=== PATIENT | male | born 1960 | race Caucasian/White ===

== ENCOUNTER 2021-03-07 16:57 | Emergency (ER) | payer OTHER ==
[~2021-03-07] VITALS: Ht 172.7 cm; Wt 86.2 kg
[2021-03-07 19:12] LABS: BASOPHILS ABSOLUTE AUTO 0.04 K/mm3 (0.00-0.23); BASOPHILS PERCENT AUTO 0 % (0-2); EOSINOPHILS ABSOLUTE AUTO 0.04 K/mm3 (0.00-0.68); EOSINOPHILS PERCENT AUTO 0 % (0-6); Hematocrit 44.6 % (37.0-53.0); Hemoglobin 14.7 g/dL (13.5-17.5); IMMATURE GRAN ABSOLUTE AUTO 0.05 K/mm3 (0.00-0.10); IMMATURE GRAN PERCENT AUTO 1 % (0-1); LYMPHOCYTES ABSOLUTE AUTO 1.32 K/mm3 (0.84-5.20); LYMPHOCYTES PERCENT AUTO 12 % (21-46); MONOCYTES ABSOLUTE AUTO 0.93 K/mm3 (0.16-1.47); MONOCYTES PERCENT AUTO 9 % (4-13); Mean Corpuscular HGB 29.3 pg (26.0-34.0); Mean Corpuscular Volume 89 fL (80-100); Mean Platelet Volume 9.8 fL (9.1-12.4); NEUTROPHILS PERCENT AUTO 78 % (41-73); Platelet Count 288 K/mm3 (150-400); RDW Coefficient Variation 13.5 % (11.7-14.2); Red Blood Cell Count 5.01 M/mm3 (4.30-5.90); White Blood Cell Count 10.98 K/mm3 (4.00-11.30)
[2021-03-07 19:29] LABS: Alanine Aminotransfer (ALT/SGP 28 U/L (12-78); Albumin, Blood 3.7 g/dL (3.4-5.0); Albumin/Globulin Ratio 0.9 (0.8-1.8); Alk Phos 118 U/L (50-136); Anion Gap 10 mmol/L (6-16); Aspartate Aminotrans (AST/SGOT 24 U/L (12-37); Bilirubin, Total 0.3 mg/dL (0.1-1.0); Blood Urea Nitrogen 18 mg/dL (8-24); Bun/Creatinine Ratio 15.8 (12.0-20.0); CO2, Blood 20 mmol/L (21-32); Calcium, Blood 8.8 mg/dL (8.5-10.1); Chloride, Blood 109 mmol/L (98-108); Creatinine, Blood 1.14 mg/dL (0.60-1.20); Ethanol (Alcohol), Blood, Med 84 mg/dL; Globulin, Blood 4.2 g/dL (2.2-4.0); Glomerular Filtration Rate >60 (60-); Glucose, Blood 106 mg/dL (70-99); Potassium, Blood 3.9 mmol/L (3.5-5.5); Sodium, Blood 139 mmol/L (136-145); Total Protein, Blood 7.9 g/dL (6.4-8.2)
== END 2021-03-07 21:05 | disposition home or self-care (01) ==
LOC: ER 16:57
PROVIDERS: Student in an Organized Health Care Education/Training Program
DX: S39.011A Strain of muscle, fascia and tendon of abdomen, initial encounter (principal); S20.212A Contusion of left front wall of thorax, initial encounter; W17.81XA Fall down embankment (hill), initial encounter
CPT/HCPCS: 71101; 74177; 80053; 85025; 96374; 99284-25; G0480; J1170; Q9967

== ENCOUNTER 2021-09-18 18:12 | Inpatient (IN) | payer OTHER ==
[~2021-09-18] VITALS: Ht 172.7 cm; Wt 94.9 kg
[2021-09-18 19:23] LABS: BASOPHILS ABSOLUTE AUTO 0.03 K/mm3 (0.00-0.23); BASOPHILS PERCENT AUTO 0 % (0-2); EOSINOPHILS ABSOLUTE AUTO 0.04 K/mm3 (0.00-0.68); EOSINOPHILS PERCENT AUTO 0 % (0-6); Hematocrit 46.6 % (37.0-53.0); Hemoglobin 15.8 g/dL (13.5-17.5); IMMATURE GRAN ABSOLUTE AUTO 0.05 K/mm3 (0.00-0.10); IMMATURE GRAN PERCENT AUTO 0 % (0-1); LYMPHOCYTES ABSOLUTE AUTO 1.85 K/mm3 (0.84-5.20); LYMPHOCYTES PERCENT AUTO 12 % (21-46); MONOCYTES ABSOLUTE AUTO 1.17 K/mm3 (0.16-1.47); MONOCYTES PERCENT AUTO 8 % (4-13); Mean Corpuscular HGB 29.2 pg (26.0-34.0); Mean Corpuscular HGB Conc 33.9 g/dL (31.5-36.5); Mean Corpuscular Volume 86 fL (80-100); NEUTROPHILS ABSOLUTE AUTO 11.88 K/mm3 (1.96-9.15); NEUTROPHILS PERCENT AUTO 79 % (41-73); Platelet Count 322 K/mm3 (150-400); RDW Coefficient Variation 13.9 % (11.7-14.2); RDW Standard Deviation 43.7 fL (35.1-46.3); Red Blood Cell Count 5.42 M/mm3 (4.30-5.90); White Blood Cell Count 15.02 K/mm3 (4.00-11.30)
[2021-09-18 19:42] LABS: International Normalized Ratio 0.97; Prothrombin Time Results 10.2 Sec (9.7-11.5)
[2021-09-18 19:48] LABS: Alanine Aminotransfer (ALT/SGP 22 U/L (12-78); Albumin, Blood 3.7 g/dL (3.4-5.0); Albumin/Globulin Ratio 0.9 (0.8-1.8); Alk Phos 112 U/L (50-136); Anion Gap 11 mmol/L (6-16); Aspartate Aminotrans (AST/SGOT 17 U/L (12-37); Bilirubin, Total 0.4 mg/dL (0.1-1.0); Blood Urea Nitrogen 15 mg/dL (8-24); CO2, Blood 18 mmol/L (21-32); Calcium, Blood 9.3 mg/dL (8.5-10.1); Chloride, Blood 108 mmol/L (98-108); Globulin, Blood 4.2 g/dL (2.2-4.0); Glomerular Filtration Rate >60 (60-); Glucose, Blood 106 mg/dL (70-99); Potassium, Blood 4.4 mmol/L (3.5-5.5); Sodium, Blood 137 mmol/L (136-145); Total Protein, Blood 7.9 g/dL (6.4-8.2)
[2021-09-19 06:39] LABS: BASOPHILS ABSOLUTE AUTO 0.05 K/mm3 (0.00-0.23); BASOPHILS PERCENT AUTO 1 % (0-2); EOSINOPHILS ABSOLUTE AUTO 0.22 K/mm3 (0.00-0.68); EOSINOPHILS PERCENT AUTO 3 % (0-6); Hematocrit 44.3 % (37.0-53.0); Hemoglobin 14.7 g/dL (13.5-17.5); IMMATURE GRAN ABSOLUTE AUTO 0.03 K/mm3 (0.00-0.10); IMMATURE GRAN PERCENT AUTO 0 % (0-1); LYMPHOCYTES ABSOLUTE AUTO 2.54 K/mm3 (0.84-5.20); LYMPHOCYTES PERCENT AUTO 32 % (21-46); MONOCYTES ABSOLUTE AUTO 0.74 K/mm3 (0.16-1.47); MONOCYTES PERCENT AUTO 9 % (4-13); Mean Corpuscular HGB 29.1 pg (26.0-34.0); Mean Corpuscular HGB Conc 33.2 g/dL (31.5-36.5); Mean Corpuscular Volume 88 fL (80-100); Mean Platelet Volume 9.9 fL (9.1-12.4); NEUTROPHILS ABSOLUTE AUTO 4.33 K/mm3 (1.96-9.15); NEUTROPHILS PERCENT AUTO 55 % (41-73); Platelet Count 280 K/mm3 (150-400); RDW Coefficient Variation 14.3 % (11.7-14.2); RDW Standard Deviation 45.4 fL (35.1-46.3); Red Blood Cell Count 5.05 M/mm3 (4.30-5.90); White Blood Cell Count 7.91 K/mm3 (4.00-11.30)
[2021-09-19 07:27] LABS: Alanine Aminotransfer (ALT/SGP 21 U/L (12-78); Albumin, Blood 3.2 g/dL (3.4-5.0); Albumin/Globulin Ratio 0.9 (0.8-1.8); Alk Phos 97 U/L (50-136); Anion Gap 10 mmol/L (6-16); Aspartate Aminotrans (AST/SGOT 18 U/L (12-37); Bilirubin, Total 0.4 mg/dL (0.1-1.0); Blood Urea Nitrogen 15 mg/dL (8-24); Bun/Creatinine Ratio 16.8 (12.0-20.0); CO2, Blood 20 mmol/L (21-32); Chloride, Blood 107 mmol/L (98-108); Creatinine, Blood 0.89 mg/dL (0.60-1.20); Globulin, Blood 3.7 g/dL (2.2-4.0); Glomerular Filtration Rate >60 (60-); Glucose, Blood 106 mg/dL (70-99); Potassium, Blood 4.4 mmol/L (3.5-5.5); Sodium, Blood 137 mmol/L (136-145); Total Protein, Blood 6.9 g/dL (6.4-8.2)
[2021-09-19] MEDS ORDERED: OMEP20ER PO (11:05)
--- NOTE | 2021-09-19 19:07 | NUR ---
END OF SHIFT SUMMARY: CIWA STABLE UNTIL 1800 AND INCREASED TO 11 GAVE 50MG OF LIBRIUM WITH DECREASED CIWA RESPONSE. PATIENT STILL RUNNING HEPARIN, VERIFIED WITH ONCOMING NIGHT RN, GREAT APPETITE, ONLY VOID OF 300 ML OF CLEAR URINE SINCE TRANSFER FROM ED. PATIENT RESTING AT THIS TIME DENIES CHEST PAIN, OR SOB.
--- NOTE | 2021-09-20 03:47 | NUR ---
0330 CIWA PT SLEEPING AT THIS TIME W NO OBVIOUS WITHDRAWL SYMPTOMS.
[2021-09-20 04:14] LABS: BASOPHILS ABSOLUTE AUTO 0.05 K/mm3 (0.00-0.23); BASOPHILS PERCENT AUTO 1 % (0-2); EOSINOPHILS PERCENT AUTO 3 % (0-6); Hematocrit 44.9 % (37.0-53.0); IMMATURE GRAN ABSOLUTE AUTO 0.06 K/mm3 (0.00-0.10); IMMATURE GRAN PERCENT AUTO 1 % (0-1); LYMPHOCYTES ABSOLUTE AUTO 2.76 K/mm3 (0.84-5.20); LYMPHOCYTES PERCENT AUTO 36 % (21-46); MONOCYTES ABSOLUTE AUTO 0.85 K/mm3 (0.16-1.47); MONOCYTES PERCENT AUTO 11 % (4-13); Mean Corpuscular HGB 29.2 pg (26.0-34.0); Mean Corpuscular HGB Conc 33.4 g/dL (31.5-36.5); Mean Corpuscular Volume 88 fL (80-100); Mean Platelet Volume 10.1 fL (9.1-12.4); NEUTROPHILS ABSOLUTE AUTO 3.71 K/mm3 (1.96-9.15); NEUTROPHILS PERCENT AUTO 49 % (41-73); Platelet Count 291 K/mm3 (150-400); Red Blood Cell Count 5.13 M/mm3 (4.30-5.90); White Blood Cell Count 7.63 K/mm3 (4.00-11.30)
--- NOTE | 2021-09-20 05:27 | NUR ---
NET SOFTWARE ENGINEER SUMMARY PT IS AXO X4 THIS SHIFT. CIWA'S HAVE BEEN 1-5 THIS SHIFT ALTHOUGH PT DID REPORT HE HAS EXPERIENCED SEVERE WITHDRAWL SYMPTOMS BEFORE. PT'S R INDEX FINGER HAS SHOWN GREAT IMPROVEMENT IN COLOR THIS SHIFT. PT REPORTING INCREASED PAIN IN HIS R HAND THIS SHIFT. VSS AND TELE SHOWING SR IN THE 90'S THIS SHIFT. PT SLEEPING COMFORTABLY IN BED FOR MOST OF THE SHIFT. WILL REPORT TO ONCOMING RN.
[2021-09-20 12:36] LABS: Influenza A, PCR NEGATIVE (NEGATIVE); Influenza B, PCR NEGATIVE (NEGATIVE); Resp Syncytial Virus, PCR NEGATIVE (NEGATIVE); SARS-Cov-2 (COVID-19) PCR, MMC NEGATIVE (NEGATIVE)
--- NOTE | 2021-09-20 17:36 | NUR ---
SHIFT SUMMARY; ASSUMED CARE AT 0700. A/A/OX4 WHEN ASSUMING CARE. FLAT AFFECT NOTED AND APPEARS LABILE WITH MOOD. AT TIMES WON'T ANSWER QUESTIONS. ASKS MULTIPLE TIMES TO GO OUTSIDE AND SMOKE. HEPARIN INFUSING AT 23 MCG/KG. GRADUALLY SHOWS INCREASING SIGNS OF ETOH WITHDRAWL DURING SIFT. CIWA PROTOCOL IN PLACE. BECOMES NON DIRECTABLE AND IMPULSIVE. JUMPS OUT OF BED AND PULLS IV OUT, NEARLY FALLS WHEN STAFF IS IN ROOM. CLUADE VEST PLACED FOR SAFTEY, MEDICATED PER [place] EMAR. WAKES 45 MINS LATER AND GETS CLAUDE OFF, APARTMENT ASSISTANT MANAGER TO ROOM BILATERAL WRIST RESTRAINTS PLACED. MEDICATED PER EMAR. WHEN AWAKE MUMBLES AND DIFFICULTY TO REORIENT. SEVERAL INCONTANT EPISODES. ATTENDS PLACED AND BEDING CHANGED. RIGHT HAND SLIGHTLY RED, INDEX FINGER THOMPSON AT TIP. TAKEN TO [facility] FOR PROCEDURE PLAN FOR ICU FOLLOWING [facility]. BELONGINGS MOVED TO ICU 9.
--- NOTE | 2021-09-20 19:00 | NUR ---
ASSUME CARE PT BROUGHT TO ICU AROUND SHIFT CHANGE AT 1900. PT IN BED W/ EYES CLOSED BUT RESPONDING TO VOICE. HIS SPEECH IS GARBLED BUT ANSWERS SOME QUESTIONS APPROPITELY. HE TRIES TO REMOVE HIS NC AND IS INSISTENT ON LEAVING TO SMOKE A CIGARETTE. HE IS REDIRECTABLE AND FALLS IN AND OUT OF SLEEP.
--- NOTE | 2021-09-20 21:05 | NUR ---
AMA PT BECAME MORE PERSISTENT ON LEAVING THE HOSPITAL IN GENERAL, STATING THAT HE DID NOT WANT TO BE HERE ANYMORE. CHARGE, RN AND I EDUCATED PT ON THE IMPORTANCE OF REMAINING IN THE HOSPITAL AND THE CARE HE STILL REQUIRED. HE STILL ATTEMPTS TO GET OUT OF BED AND IS NO LONGER REDIRECTABLE. CALLED PT'S GIRLFRIEND, ALLISON, AND DAUGHTER, MARIA ISABEL, WHO BOTH SPOKE WITH PT BUT HE STILL STATES HE WANTS TO GO HOME. ALLISON AGREED TO COME GET PT. [address] ROSS W/ NO ANSWER. CALLED AND SPOKE TO DR. SUERO WHO STATES SHE WILL MESSAGE DR. ROSS AND TO TRY TO CALL HER BACK. SPOKE W/ DR. ROSS AND INFORMED HER OF PT'S REQUEST TO GO AMA AND SHE STATES WE NEED TO INFORM DR. ANDERWS THE RESIDENT. CALLED DR. ANDREWS BUT THERE WAS NO ANSWER SO CALLED DR. ROSS BACK AND LEFT A MESSAGE. SHE CALLED BACK AND STATES SHE IS WITH DR. ANDREWS WHO SAYS SHE DOES NOT NEED TO SEE THE PT AND TO MAKE SURE THE PT SIGNS THE AMA PAPERWORK. PT'S BROTHER SUDEEP ARRIVED TO TAKE PT HOME. HE WITNESSED THE SIGNATURE OF THE AMA PAPERWORK AND TOOK THE PT AND HIS BELONGINGS HOME. THIS INCLUDED A FLASK, CELL PHONE, AND CELL PHONE SUPERVISORY EXAMINER. HELPED PT PUT ON HIS CLOTHES, SLIPPERS, AND GLASSES. HE WAS GIVEN A WHEELCHAIR TO GET TO HIS BROTHER'S TRUCK BECAUSE HE IS UNSTEADY ON HIS FEET.
== END 2021-09-20 21:00 | disposition left against medical advice (07) | DRG 300 ==
LOC: ER 18:12 → PCU 22:42 → ERHOLD 22:42 → ER 22:42 → PCU 09-19 13:00 → ICUW 09-20 17:50
PROVIDERS: Emergency Medicine; Family Medicine; Radiology Diagnostic Radiology; ADMIT Internal Medicine
PROC: HZ2ZZZZ Detoxification Services for Substance Abuse Treatment (ICD-10-PCS; principal; 2021-09-18)
PROC: B30HZZZ Plain Radiography of Right Upper Extremity Arteries (ICD-10-PCS; 2021-09-20)
DX: I74.2 Embolism and thrombosis of arteries of the upper extremities (principal); I50.22 Chronic systolic (congestive) heart failure; F10.239 Alcohol dependence with withdrawal, unspecified; F17.210 Nicotine dependence, cigarettes, uncomplicated; F15.90 Other stimulant use, unspecified, uncomplicated; Z20.822 Contact with and (suspected) exposure to COVID-19; K21.9 Gastro-esophageal reflux disease without esophagitis; B19.20 Unspecified viral hepatitis C without hepatic coma; I51.3 Intracardiac thrombosis, not elsewhere classified; Z71.6 Tobacco abuse counseling
CPT/HCPCS: 0241U; 36415; 37211; 73206; 75710; 75774; 76937; 80053; 84484; 85025; 85610; 85730; 93005; 93010; 93931; 96374; 96375; 96376; 99152; 99153; 99285-25; A9270; C1751; C1760; C1769; C1887; C1894; C8929; J1170; J1644; J2060; J2997; J3010; J7030; J7050; Q9957; Q9967

== ENCOUNTER 2023-08-07 22:38 | Emergency (ER) | payer OTHER ==
[~2023-08-07] VITALS: Ht 172.7 cm; Wt 79.4 kg
[~2023-08-07 22:38] MED LIST: OMEP20ER PO
[2023-08-07 22:55] VITALS: BP 127/83
== END 2023-08-07 23:31 | disposition left against medical advice (07) ==
LOC: ER 22:38
DX: R07.89 Other chest pain (principal); Z53.21 Procedure and treatment not carried out due to patient leaving prior to being seen by health care provider; F17.200 Nicotine dependence, unspecified, uncomplicated
CPT/HCPCS: 71046; 93005; 93010

== ENCOUNTER 2023-09-01 18:20 | Emergency (ER) | payer OTHER ==
[~2023-09-01] VITALS: Ht 175.3 cm; Wt 83.9 kg
[2023-09-01 18:29] VITALS: BP 137/123
[2023-09-01] MEDS ORDERED: BUPRENORPHIN-N1 EAC4 SL (19:20)
[2023-09-01] MEDS ORDERED: ONDA4 PO (19:21)
== END 2023-09-01 20:15 | disposition home or self-care (01) ==
LOC: ER 18:20
DX: T43.621A Poisoning by amphetamines, accidental (unintentional), initial encounter (principal); F11.23 Opioid dependence with withdrawal; Z79.899 Other long term (current) drug therapy; F17.200 Nicotine dependence, unspecified, uncomplicated
CPT/HCPCS: 93005; 93010; 96374; 96375; 99285-25; A9270; J1790; J2310